=== PATIENT | female | born 1995 | race Caucasian/White ===

== ENCOUNTER 2017-03-08 15:43 | Emergency (ER) | payer SELFPAY, OTHER ==
[2017-03-08] MEDS: AZITHROMYCIN 250 MG TAB PO (17:30)
== END 2017-03-08 17:56 | disposition home or self-care (01) ==
LOC: M ED 15:43
DX: J40 Bronchitis, not specified as acute or chronic (principal); Z87.891 Personal history of nicotine dependence
CPT/HCPCS: 87880

== ENCOUNTER 2018-01-18 12:08 | Emergency (ER) | payer SELFPAY | END 2018-01-18 14:28 | disposition left against medical advice (07) | LOC: M ED 12:08 | DX: Z53.29 Procedure and treatment not carried out because of patient's decision for other reasons (principal) ==

== ENCOUNTER 2018-03-25 07:57 | Emergency (ER) | payer SELFPAY ==
[~2018-03-25] VITALS: Ht 157.5 cm; Wt 53.2 kg
[~2018-03-25 07:57] MED LIST: MOM30SS PO; MOTR200T44 PO; NEXP1IMP SC; PROAAER10 INH; TYLE167L PO; ZITHTAB PO
[2018-03-25] MEDS ORDERED: MAGICMW SSP (09:11)
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
[2018-03-25] MEDS ORDERED: ROBA500T PO (10:26)
[2018-03-25] MEDS ORDERED: NAPR-885 PO (10:26)
[2018-03-25] MEDS ORDERED: KETOROLAC 60 MG/2 ML VIAL (J1885) IM ONE (10:30)
[2018-03-25] MEDS ORDERED: CYCLOBENZAPRINE 10 MG TAB PO ONE (10:30)
[2018-03-25 11:06] VITALS: BP 107/69
== END 2018-03-25 11:07 | disposition home or self-care (01) ==
LOC: M ED 07:57
DX: M54.6 Pain in thoracic spine (principal); W18.40XA Slipping, tripping and stumbling without falling, unspecified, initial encounter; Y92.9 Unspecified place or not applicable; Y93.9 Activity, unspecified; Y99.9 Unspecified external cause status; J45.909 Unspecified asthma, uncomplicated; Z79.899 Other long term (current) drug therapy
CPT/HCPCS: 72040; 72072; 96372; 99283; J1885

== ENCOUNTER 2018-04-24 07:57 | Emergency (ER) | payer SELFPAY ==
[~2018-04-24] VITALS: Ht 157.5 cm; Wt 78.2 kg
[~2018-04-24 07:57] MED LIST changes: +MAGICMW SSP; +NAPR-885 PO; +ROBA500T PO
[2018-04-24 07:58] VITALS: BP 126/75
[2018-04-24] MEDS ORDERED: KETOROLAC 60 MG/2 ML VIAL (J1885) IM ONE (08:15)
--- NOTE | 2018-04-24 08:33 | REP ---
Right foot four views : There is no fracture or dislocation. Mineralization and joint spaces are normal. There are no calcifications or foreign bodies. Impression: Negative right foot . Electronically Signed by Clarke Alejo MD 04/24/2018 08:24 A
== END 2018-04-24 09:08 | disposition home or self-care (01) ==
LOC: M ED 07:57
DX: M79.671 Pain in right foot (principal); Z79.3 Long term (current) use of hormonal contraceptives
CPT/HCPCS: 73630; 96372; 99284; J1885

== ENCOUNTER 2018-07-04 23:23 | Emergency (ER) | payer OTHER, SELFPAY ==
[~2018-07-04] VITALS: Ht 157.5 cm; Wt 53.2 kg
[2018-07-05] MEDS ORDERED: METOCLOPRAMIDE INJ 10MG/2ML VIAL (J2765) IV ONE
[2018-07-05] MEDS ORDERED: KETOROLAC 30 MG/ML VIAL (J1885) IV ONE
[2018-07-05] MEDS ORDERED: diphenhydrAMINE INJ 50MG/ML VIAL (J1200) IV ONE
[2018-07-05] MEDS ORDERED: ACETAMINOPHEN 500 MG TAB PO ONE
[2018-07-05] MEDS ORDERED: CYCL5TAB PO (01:12)
[2018-07-05] MEDS ORDERED: CYCLOBENZAPRINE 5MG TABLET PO ONE (01:15)
[2018-07-05 01:24] VITALS: BP 110/64
== END 2018-07-05 01:49 | disposition home or self-care (01) ==
LOC: M ED 23:23
DX: G44.209 Tension-type headache, unspecified, not intractable (principal); S29.012A Strain of muscle and tendon of back wall of thorax, initial encounter; X58.XXXA Exposure to other specified factors, initial encounter; Y92.89 Other specified places as the place of occurrence of the external cause; Z79.3 Long term (current) use of hormonal contraceptives; Z87.891 Personal history of nicotine dependence
CPT/HCPCS: 84702; 96374; 96375; 99284; J1200; J1885; J2765

== ENCOUNTER 2018-09-26 21:25 | Emergency (ER) | payer OTHER, SELFPAY ==
[~2018-09-26] VITALS: Ht 157.5 cm; Wt 53.2 kg
[~2018-09-26 21:25] MED LIST changes: +CYCL5TAB PO
[2018-09-26] MEDS ORDERED: ADACEL/BOOSTRIX VACCINE (DIPHTH/PERTUSS/ACELL/TETANUS)0.5ML SYR (90715) IM ONE (22:45)
[2018-09-26] MEDS ORDERED: NORCO, ANEXSIA 5/325MG TABLET (HYDROcodone/ACETAMINOPHEN) PO ONE (22:45)
[2018-09-26] MEDS ORDERED: NORC1TAB7 PO (23:23)
[2018-09-26] MEDS ORDERED: IBUP-1022 PO (23:23)
[2018-09-26] MEDS ORDERED: KEFL500C17 PO (23:27)
[2018-09-26] MEDS ORDERED: NORCO 5/325MG TABLET (BULK FOR ED) PO ONE (23:30)
[2018-09-26 23:31] VITALS: BP 128/70
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
== END 2018-09-26 23:45 | disposition home or self-care (01) ==
LOC: M ED 21:25
DX: S92.424A Nondisplaced fracture of distal phalanx of right great toe, initial encounter for closed fracture (principal); W24.0XXA Contact with lifting devices, not elsewhere classified, initial encounter; Y92.9 Unspecified place or not applicable; Y93.9 Activity, unspecified; Y99.0 Civilian activity done for income or pay; J45.909 Unspecified asthma, uncomplicated; Z79.3 Long term (current) use of hormonal contraceptives

== ENCOUNTER 2018-12-21 15:00 | Emergency (ER) | payer OTHER, SELFPAY ==
[~2018-12-21] VITALS: Ht 157.5 cm; Wt 55.0 kg
[~2018-12-21 15:00] MED LIST changes: +IBUP-1022 PO; +KEFL500C17 PO; +NORC1TAB7 PO
[2018-12-21] MEDS ORDERED: ALBUTEROL SULFATE 2.5 MG/0.5 ML INH NEB SOLN INH ONE (17:15)
[2018-12-21 17:23] LABS: INFLUENZA A AMPLIFICATION NEGATIVE (NEGATIVE); INFLUENZA B AMPLIFICATION NEGATIVE (NEGATIVE)
--- NOTE | 2018-12-21 18:20 | REP ---
PA and lateral chest: Comparison is a rib series dated 12/24/2009. The lung paredes are clear. The cardiac size is normal. The toy, mediastinum, and skeletal structures are unremarkable. Impression: Negative PA and lateral chest. There is no interval change. Electronically Signed by Clarke Alejo MD 12/21/2018 06:11 P
[2018-12-21] MEDS ORDERED: AFRI0.058 (18:21)
[2018-12-21] MEDS ORDERED: VENTAER INH (18:21)
[2018-12-21] MEDS ORDERED: BENZ200C70 PO (18:21)
[2018-12-21] MEDS ORDERED: ZITHTAB PO (18:21)
[2018-12-21] MEDS ORDERED: FLON1SPR NARES (18:22)
[2018-12-21 18:26] VITALS: BP 119/74
== END 2018-12-21 18:32 | disposition home or self-care (01) ==
LOC: M ED 15:00
DX: J45.901 Unspecified asthma with (acute) exacerbation (principal); H65.01 Acute serous otitis media, right ear; R51 Headache

== ENCOUNTER 2019-01-28 09:58 | Emergency (ER) | payer OTHER ==
[~2019-01-28] VITALS: Ht 157.5 cm; Wt 51.8 kg
[~2019-01-28 09:58] MED LIST changes: +AFRI0.058; +BENZ200C70 PO; +FLON1SPR NARES; +VENTAER INH
[2019-01-28] MEDS ORDERED: KETOROLAC 30 MG/ML VIAL (J1885) IV ONE (11:00)
[2019-01-28] MEDS ORDERED: NS 1,000 ML IV ONE (11:00)
[2019-01-28] MEDS ORDERED: ONDANSETRON 4MG/2ML VIAL (J2405) IV ONE (11:00)
[2019-01-28 11:30] LABS: BASO % 0.5 % (0.0-1.0); EOS # 0.2 10^3/uL (0.0-0.5); EOS % 2.1 % (0.0-3.0); HEMATOCRIT 43.1 % (36.0-47.0); HEMOGLOBIN 13.7 g/dl (12.0-15.5); MEAN CORPUSCULAR HEMOGLOBIN 28.6 pg (27.0-33.0); MEAN CORPUSCULAR HGB CONC 31.8 g/dl (32.0-36.5); MONO # 0.5 10^3/uL (0.0-0.8); MONO % 6.3 % (0.0-5.0); NEUTROPHILS # 5.7 10^3/uL (1.5-8.5); NEUTROPHILS % 67.7 % (36.0-66.0); PLATELET COUNT, AUTOMATED 236 10^3/uL (150-450); RED BLOOD COUNT 4.79 10^6/uL (4.00-5.40); WHITE BLOOD COUNT 8.5 10^3/uL (4.0-10.0)
[2019-01-28 11:38] LABS: ALT/SGPT 15 U/L (12-78); BILIRUBIN,DIRECT < 0.1 MG/DL (0.0-0.2); BILIRUBIN,TOTAL 0.3 MG/DL (0.2-1.0); BLOOD UREA NITROGEN 8 MG/DL (7-18); CALCIUM LEVEL 9.2 MG/DL (8.5-10.1); CARBON DIOXIDE LEVEL 22 MEQ/L (21-32); CHLORIDE LEVEL 112 MEQ/L (98-107); CREATININE FOR GFR 0.92 MG/DL (0.55-1.30); GLOMERULAR FILTRATION RATE > 60.0 (>60); GLUCOSE, FASTING 105 MG/DL (70-100); POTASSIUM SERUM 3.8 MEQ/L (3.5-5.1); SODIUM LEVEL 140 MEQ/L (136-145); TOTAL PROTEIN 7.9 GM/DL (6.4-8.2)
--- NOTE | 2019-01-28 11:41 | REP ---
Urinary tract sonography: History: Right flank pain and dysuria. Comparison CT study December 21, 2006. Findings: Scanning at the level of the urinary bladder shows that it is empty at the time of scanning. Renal cortical echogenicity pattern in the right kidney appears slightly increased which may reflect obstructive uropathy or pyelonephritis. It is essentially isoechoic with hepatic parenchyma. There is mild right-sided hydronephrosis. Right hydroureter 15 mm in AP dimension is seen. No left-sided hydronephrosis is seen. Renal cortical echogenicity pattern is normal on the left. No masses seen on either side. No cyst is observed. Left renal dimensions are 11.1 x 4.7 x 5.3 cm. Right kidney measures 11.5 x 4.6 x 4.1 cm. Impression: Mild to moderate right-sided hydronephrosis and hydroureter. This is a new finding compared with the 2007 CT study. Mildly increased renal cortical echogenicity pattern right kidney. Electronically Signed by Gustabo Jacobo MD 01/28/2019 11:33 A
[2019-01-28] MEDS ORDERED: FLOM0.4C39 PO (13:40)
[2019-01-28] MEDS ORDERED: IBUP-1022 PO (13:40)
[2019-01-28] MEDS ORDERED: NORC1TAB7 PO (13:40)
[2019-01-28] MEDS ORDERED: ONDA4TAB6 PO (13:40)
[2019-01-28 14:01] VITALS: BP 133/83
--- NOTE | 2019-01-28 15:51 | REP ---
KUB: REASON: Right-sided abdominal pain with renal colic. FINDINGS: KUB shows the intestinal gas pattern to be nonspecific. The organ silhouettes insofar as delineated are unremarkable. There is no evidence of free intraperitoneal air. IMPRESSION: Nonspecific. There is a calcification in the right hemipelvis, which is not round but might represent a phlebolith. Certainly, a distal right ureteral calculus cannot be ruled out. Electronically Signed by Rm Martin DO 01/28/2019 04:08 P
== END 2019-01-28 14:04 | disposition home or self-care (01) ==
LOC: M ED 09:58
DX: N13.2 Hydronephrosis with renal and ureteral calculous obstruction (principal); J45.909 Unspecified asthma, uncomplicated; F17.210 Nicotine dependence, cigarettes, uncomplicated; Z79.3 Long term (current) use of hormonal contraceptives; Z79.51 Long term (current) use of inhaled steroids; Z79.899 Other long term (current) drug therapy
CPT/HCPCS: 74018; 76775; 80048; 80076; 81001; 85025; 87086; 96361; 96374; 96375; 99284; J1885; J2405

== ENCOUNTER 2019-01-31 06:50 | Emergency (ER) | payer OTHER ==
[~2019-01-31] VITALS: Ht 157.5 cm; Wt 53.3 kg
[~2019-01-31 06:50] MED LIST changes: +FLOM0.4C39 PO; +ONDA4TAB6 PO
[2019-01-31 07:41] LABS: BASO % 0.3 % (0.0-1.0); EOS # 0.1 10^3/uL (0.0-0.5); EOS % 1.1 % (0.0-3.0); HEMATOCRIT 39.3 % (36.0-47.0); HEMOGLOBIN 12.9 g/dl (12.0-15.5); LYMPH # 0.8 10^3/uL (1.5-5.0); LYMPH % 11.1 % (24.0-44.0); MEAN CORPUSCULAR HEMOGLOBIN 28.9 pg (27.0-33.0); MEAN CORPUSCULAR HGB CONC 32.8 g/dl (32.0-36.5); MEAN CORPUSCULAR VOLUME 88.1 fl (80.0-96.0); MONO # 0.6 10^3/uL (0.0-0.8); MONO % 8.2 % (0.0-5.0); NEUTROPHILS # 5.9 10^3/uL (1.5-8.5); NEUTROPHILS % 78.6 % (36.0-66.0); PLATELET COUNT, AUTOMATED 144 10^3/uL (150-450); RED BLOOD COUNT 4.46 10^6/uL (4.00-5.40); WHITE BLOOD COUNT 7.5 10^3/uL (4.0-10.0)
[2019-01-31] MEDS ORDERED: NS 1,000 ML IV ONE (07:45)
[2019-01-31] MEDS ORDERED: ONDANSETRON 4MG/2ML VIAL (J2405) IV ONE (07:45)
[2019-01-31 08:21] LABS: ALBUMIN 3.3 GM/DL (3.2-5.2); ALT/SGPT 13 U/L (12-78); BILIRUBIN,DIRECT < 0.1 MG/DL (0.0-0.2); BILIRUBIN,TOTAL 0.5 MG/DL (0.2-1.0); BLOOD UREA NITROGEN 13 MG/DL (7-18); CALCIUM LEVEL 8.9 MG/DL (8.5-10.1); CARBON DIOXIDE LEVEL 23 MEQ/L (21-32); CHLORIDE LEVEL 109 MEQ/L (98-107); GLUCOSE, FASTING 107 MG/DL (70-100); LIPASE 41 U/L (73-393); POTASSIUM SERUM 4.6 MEQ/L (3.5-5.1); SODIUM LEVEL 140 MEQ/L (136-145); TOTAL PROTEIN 6.9 GM/DL (6.4-8.2)
[2019-01-31] MEDS ORDERED: KETOROLAC 30 MG/ML VIAL (J1885) IV ONE (09:00)
--- NOTE | 2019-01-31 09:42 | REP ---
CT ABDOMEN AND PELVIS WITHOUT CONTRAST: CT abdomen and pelvis was performed without oral or IV contrast. Sagittal and coronal reconstruction images are performed. Visualized lung bases demonstrate no infiltrate. The liver, spleen, adrenals, and pancreas are grossly unremarkable. There is moderate right hydroureteronephrosis caused by a 5 mm calculus at the right ureterovesical junction. There are a couple of punctate calcifications in the right renal collecting system. There are two subcentimeter calculi in the left renal collecting system. There is no abdominal aortic aneurysm. There is no adenopathy. There is no free air. No gross bowel abnormality is seen. There is mild free fluid in the pelvis. IMPRESSION: 5 mm calculus at the right ureterovesical junction causing moderate right hydroureteronephrosis. Intrarenal calculi are also seen. Mild free fluid in the pelvis. Electronically Signed by Clarke Connell MD 01/31/2019 04:19 P
[2019-01-31] MEDS ORDERED: NORC1TAB7 PO (10:02)
[2019-01-31] MEDS ORDERED: KETO10TAB PO (10:02)
[2019-01-31 10:20] VITALS: BP 108/58
== END 2019-01-31 10:33 | disposition home or self-care (01) ==
LOC: M ED 06:50
DX: N13.2 Hydronephrosis with renal and ureteral calculous obstruction (principal); Z79.3 Long term (current) use of hormonal contraceptives; F17.210 Nicotine dependence, cigarettes, uncomplicated
CPT/HCPCS: 74176; 80048; 80076; 81001; 83690; 84702; 85025; 96361; 96374; 96375; 99284; J1885; J2405

== ENCOUNTER 2019-04-28 11:24 | Emergency (ER) | payer OTHER, SELFPAY ==
[~2019-04-28] VITALS: Ht 157.5 cm; Wt 52.4 kg
[~2019-04-28 11:24] MED LIST changes: +KETO10TAB PO
[2019-04-28] MEDS ORDERED: IBUP200T45 PO (11:31)
[2019-04-28 12:30] LABS: INFLUENZA A AMPLIFICATION NEGATIVE (NEGATIVE); INFLUENZA B AMPLIFICATION POSITIVE (NEGATIVE)
--- NOTE | 2019-04-28 12:31 | REP ---
Chest x-ray: Two views. History: fever and cough . Comparison study: December 21, 2018 . Findings: The lungs are well inflated and free of infiltrate. The pleural angles are sharp. The heart size is normal. Pulmonary vasculature is not increased. No significant bony abnormality is seen. Impression: Negative chest x-ray. Electronically Signed by Gustabo Jacobo MD 04/28/2019 12:23 P
[2019-04-28 13:08] LABS: BASO % 0.2 % (0.0-1.0); HEMATOCRIT 45.2 % (36.0-47.0); HEMOGLOBIN 15.3 g/dl (12.0-15.5); LYMPH % 19.8 % (24.0-44.0); MEAN CORPUSCULAR HEMOGLOBIN 28.7 pg (27.0-33.0); MEAN CORPUSCULAR HGB CONC 33.8 g/dl (32.0-36.5); MEAN CORPUSCULAR VOLUME 84.8 fl (80.0-96.0); MONO # 0.8 10^3/uL (0.0-0.8); MONO % 14.7 % (0.0-5.0); NEUTROPHILS # 3.4 10^3/uL (1.5-8.5); NEUTROPHILS % 65.1 % (36.0-66.0); PLATELET COUNT, AUTOMATED 162 10^3/uL (150-450); RED BLOOD COUNT 5.33 10^6/uL (4.00-5.40); WHITE BLOOD COUNT 5.2 10^3/uL (4.0-10.0)
[2019-04-28 13:33] LABS: BLOOD UREA NITROGEN 15 MG/DL (7-18); CALCIUM LEVEL 9.4 MG/DL (8.5-10.1); CARBON DIOXIDE LEVEL 25 MEQ/L (21-32); CHLORIDE LEVEL 99 MEQ/L (98-107); CREATININE FOR GFR 1.04 MG/DL (0.55-1.30); GLOMERULAR FILTRATION RATE > 60.0 (>60); GLUCOSE, FASTING 84 MG/DL (70-100); POTASSIUM SERUM 4.3 MEQ/L (3.5-5.1); SODIUM LEVEL 132 MEQ/L (136-145)
[2019-04-28 14:10] VITALS: BP 115/80
== END 2019-04-28 14:10 | disposition home or self-care (01) ==
LOC: M ED 11:24
DX: J10.1 Influenza due to other identified influenza virus with other respiratory manifestations (principal); E23.6 Other disorders of pituitary gland; Z87.891 Personal history of nicotine dependence

== ENCOUNTER 2019-05-01 12:46 | Emergency (ER) | payer OTHER, SELFPAY ==
[~2019-05-01] VITALS: Ht 157.5 cm; Wt 49.6 kg
[~2019-05-01 12:46] MED LIST changes: +IBUP200T45 PO
[2019-05-01 12:47] VITALS: BP 104/60
[2019-05-01] MEDS ORDERED: CHLO1.4S2 MT (13:18)
[2019-05-01] MEDS ORDERED: ACETAMINOPHEN 325 MG TAB PO ONE (14:00)
== END 2019-05-01 14:13 | disposition home or self-care (01) ==
LOC: M ED 12:46
DX: J10.1 Influenza due to other identified influenza virus with other respiratory manifestations (principal); Z79.3 Long term (current) use of hormonal contraceptives

== ENCOUNTER 2019-05-13 17:54 | Emergency (ER) | payer SELFPAY ==
[~2019-05-13] VITALS: Ht 157.5 cm; Wt 52.0 kg
[2019-05-13 17:54] VITALS: BP 134/76
[~2019-05-13 17:54] MED LIST changes: +CHLO1.4S2 MT
[2019-05-13] MEDS ORDERED: AUGM875T28 PO (18:19)
[2019-05-13] MEDS ORDERED: AUGMENTIN 875 MG TAB PO ONE (18:30)
== END 2019-05-13 18:25 | disposition home or self-care (01) ==
LOC: M ED 17:54
DX: K02.9 Dental caries, unspecified (principal); E23.7 Disorder of pituitary gland, unspecified; Z79.899 Other long term (current) drug therapy

== ENCOUNTER 2021-07-25 15:56 | Emergency (ER) | payer OTHER, SELFPAY ==
[~2021-07-25] VITALS: Ht 157.5 cm; Wt 56.0 kg
[~2021-07-25 15:56] MED LIST changes: -AFRI0.058; +AUGM875T28 PO; -CHLO1.4S2 MT; +CHLO1.4S7 MT; -IBUP200T45 PO; +IBUP200T46 PO; +OXYM15SP2
[2021-07-25] MEDS ORDERED: LIDOCAINE W/EPINEPHRINE 1% 20ML VIAL SC ONE (20:00)
[2021-07-25] MEDS ORDERED: CEPH500C PO (20:22)
[2021-07-25] MEDS ORDERED: CEPHALEXIN 500 MG CAP PO ONE (20:30)
[2021-07-25 20:37] VITALS: BP 110/65
== END 2021-07-25 20:38 | disposition home or self-care (01) ==
LOC: M ED 15:56
DX: L02.411 Cutaneous abscess of right axilla (principal); J45.909 Unspecified asthma, uncomplicated; Z79.899 Other long term (current) drug therapy

== ENCOUNTER 2021-09-07 00:12 | Emergency (ER) | payer OTHER ==
[~2021-09-07] VITALS: Ht 157.5 cm; Wt 51.8 kg
[~2021-09-07 00:12] MED LIST changes: +CEPH500C PO; +ETON68IM SC; -NEXP1IMP SC
[2021-09-07 00:13] VITALS: BP 132/72
== END 2021-09-07 04:45 | disposition left against medical advice (07) ==
LOC: M ED 00:12
DX: Z53.21 Procedure and treatment not carried out due to patient leaving prior to being seen by health care provider (principal)

== ENCOUNTER 2021-09-24 11:29 | Emergency (ER) | payer OTHER ==
[~2021-09-24] VITALS: Ht 157.5 cm; Wt 53.3 kg
[2021-09-24 11:30] VITALS: BP 119/69
== END 2021-09-24 14:30 | disposition left against medical advice (07) ==
LOC: M ED 11:29
DX: Z53.21 Procedure and treatment not carried out due to patient leaving prior to being seen by health care provider (principal)

== ENCOUNTER → 2022-04-29 | Outpatient (CLI) | payer OTHER ==
[2022-04-29 17:55] LABS: HEMATOCRIT 35.3 % (36.0-47.0); HEMOGLOBIN 11.9 g/dl (12.0-15.5); MEAN CORPUSCULAR HEMOGLOBIN 29.9 pg (27.0-33.0); MEAN CORPUSCULAR HGB CONC 33.7 g/dl (32.0-36.5); MEAN CORPUSCULAR VOLUME 88.7 fl (80.0-96.0); PLATELET COUNT, AUTOMATED 211 10^3/uL (150-450); RED BLOOD COUNT 3.98 10^6/uL (4.00-5.40); WHITE BLOOD COUNT 7.1 10^3/uL (4.0-10.0)
[2022-04-29 18:55] LABS: HIV 1&2 SCREEN CENTAUR NEGATIVE (NEGATIVE)
[2022-04-30 16:03] LABS: GC DNA AMPLIFICATION NEGATIVE (NEGATIVE)
== END ==
LOC: M PLALAB 14:42
PROVIDERS: ATTEND Advanced Practice Midwife
DX: Z34.82 Encounter for supervision of other normal pregnancy, second trimester (principal)

== ENCOUNTER → 2022-05-12 | Outpatient (CLI) | payer OTHER | LOC: M WHC 07:57 | PROVIDERS: ATTEND Advanced Practice Midwife | DX: Z34.82 Encounter for supervision of other normal pregnancy, second trimester (principal) ==

== ENCOUNTER → 2022-06-06 | Outpatient (CLI) | payer OTHER ==
[2022-06-06 15:43] LABS: HEMATOCRIT 30.9 % (36.0-47.0); HEMOGLOBIN 10.3 g/dl (12.0-15.5); MEAN CORPUSCULAR HEMOGLOBIN 28.8 pg (27.0-33.0); MEAN CORPUSCULAR HGB CONC 33.3 g/dl (32.0-36.5); MEAN CORPUSCULAR VOLUME 86.3 fl (80.0-96.0); PLATELET COUNT, AUTOMATED 185 10^3/uL (150-450); RED BLOOD COUNT 3.58 10^6/uL (4.00-5.40); WHITE BLOOD COUNT 6.7 10^3/uL (4.0-10.0)
[2022-06-06 17:13] LABS: GC DNA AMPLIFICATION NEGATIVE (NEGATIVE)
== END ==
LOC: M PLALAB 11:48
PROVIDERS: ATTEND Obstetrics & Gynecology
DX: Z34.82 Encounter for supervision of other normal pregnancy, second trimester (principal); Z3A.00 Weeks of gestation of pregnancy not specified
CPT/HCPCS: 36415; 82950; 85027; 86850; 86900; 86901; 87810; 87850; J2790

== ENCOUNTER → 2022-06-16 | Outpatient (CLI) | payer OTHER | LOC: M LAB 08:10 | PROVIDERS: ATTEND Obstetrics & Gynecology | DX: Z34.82 Encounter for supervision of other normal pregnancy, second trimester (principal) ==

== ENCOUNTER 2022-07-20 22:32 | Emergency (ER) | payer OTHER ==
[~2022-07-20] VITALS: Ht 157.5 cm; Wt 67.7 kg
[~2022-07-20 22:32] MED LIST changes: +ACET325C5 PO; +PRENTAB9 PO
[2022-07-20 22:34] VITALS: BP 126/59
[2022-07-21] MEDS ORDERED: CEPH500C PO (06:24)
== END 2022-07-21 02:11 | disposition admitted as inpatient to this hospital (09) ==
LOC: M ED 22:32
DX: O26.893 Other specified pregnancy related conditions, third trimester (principal); M54.50 Low back pain, unspecified; Z3A.35 35 weeks gestation of pregnancy; Z79.810 Long term (current) use of selective estrogen receptor modulators (SERMs); Z79.1 Long term (current) use of non-steroidal anti-inflammatories (NSAID)

== ENCOUNTER → 2022-07-29 | Outpatient (REF) | payer OTHER | LOC: M PLALAB 11:02 | PROVIDERS: ATTEND Obstetrics & Gynecology | DX: Z36.85 Encounter for antenatal screening for Streptococcus B (principal) ==

== ENCOUNTER 2022-08-03 15:02 | Emergency (ER) | payer OTHER ==
[~2022-08-03] VITALS: Ht 157.5 cm; Wt 67.5 kg
[2022-08-03 15:08] VITALS: BP 114/82; TEMP 97.8; O2SAT 99
[2022-08-03] MEDS ORDERED: TUMS500C PO (15:32)
[2022-08-03] MEDS ORDERED: ACET-897 PO (15:32)
[2022-08-03] MEDS ORDERED: CYCL10TA20 PO (18:48)
== END 2022-08-03 15:08 | disposition admitted as inpatient to this hospital (09) ==
LOC: M ED 15:02
DX: M54.50 Low back pain, unspecified (principal); Z91.030 Bee allergy status; Z79.810 Long term (current) use of selective estrogen receptor modulators (SERMs); Z79.899 Other long term (current) drug therapy; Z53.9 Procedure and treatment not carried out, unspecified reason

== ENCOUNTER 2022-08-03 15:10 | Outpatient (CLI) | payer OTHER ==
[~2022-08-03] VITALS: Ht 157.5 cm; Wt 67.6 kg
[2022-08-03] MEDS ORDERED: TUMS500C PO (15:32)
[2022-08-03] MEDS ORDERED: ACET-897 PO (15:32)
[2022-08-03] MEDS ORDERED: HOME MED LIST COMPLETE! XX SCH (15:35)
[2022-08-03 15:39] VITALS: BP 120/71; O2SAT 98
[2022-08-03 17:26] VITALS: BP 122/72
[2022-08-03] MEDS ORDERED: CYCL10TA20 PO (18:48)
[2022-08-03] MEDS ORDERED: CYCLOBENZAPRINE 10MG TABLET PO ONE (19:00)
[2022-08-03 19:11] VITALS: BP 137/76
[2022-08-03 19:12] VITALS: O2SAT 100
[2022-08-03 19:13] VITALS: BP 127/74
== END 2022-08-03 19:28 | disposition home or self-care (01) ==
LOC: M LDO 15:10
PROVIDERS: ATTEND Obstetrics & Gynecology
DX: O26.893 Other specified pregnancy related conditions, third trimester (principal); M54.50 Low back pain, unspecified; Z3A.36 36 weeks gestation of pregnancy

== ENCOUNTER 2022-08-12 21:26 | Inpatient (IN) | payer OTHER ==
[~2022-08-12] VITALS: Ht 157.5 cm; Wt 71.0 kg
[~2022-08-12 21:26] MED LIST changes: +ACET-897 PO; +CYCL10TA20 PO; +TUMS500C PO
[2022-08-12 21:46] VITALS: BP 139/79
[2022-08-12 22:35] LABS: BASO % 0.2 % (0.0-1.0); EOS # 0.1 10^3/uL (0.0-0.5); EOS % 1.3 % (0.0-3.0); HEMATOCRIT 28.9 % (36.0-47.0); HEMOGLOBIN 9.5 g/dl (12.0-15.5); LYMPH # 1.3 10^3/uL (1.5-5.0); MEAN CORPUSCULAR HEMOGLOBIN 25.2 pg (27.0-33.0); MEAN CORPUSCULAR HGB CONC 32.9 g/dl (32.0-36.5); MEAN CORPUSCULAR VOLUME 76.7 fl (80.0-96.0); MONO # 0.6 10^3/uL (0.0-0.8); MONO % 6.7 % (2.0-8.0); NEUTROPHILS # 7.1 10^3/uL (1.5-8.5); NEUTROPHILS % 77.3 % (36.0-66.0); PLATELET COUNT, AUTOMATED 191 10^3/uL (150-450); RED BLOOD COUNT 3.77 10^6/uL (4.00-5.40); WHITE BLOOD COUNT 9.2 10^3/uL (4.0-10.0)
[2022-08-12 22:36] VITALS: BP 138/82
[2022-08-12] MEDS ORDERED: OXYTOCIN DRIP 30 UNITS in IV 1 EA IV SCH (23:30)
[2022-08-12] MEDS ORDERED: MORPHINE 4 MG/ML 1ML VIAL As Ordered ONE (23:52)
[2022-08-12] MEDS ORDERED: LIDOCAINE 1% MDV 20ML VIAL SC ONE (23:55)
[2022-08-12] MEDS ORDERED: MORPHINE 4 MG/ML 1ML VIAL IV ONE (23:55)
[2022-08-12] MEDS ORDERED: LIDOCAINE 1% MDV 20ML VIAL As Ordered ONE (23:55)
[2022-08-12 23:59] VITALS: BP 148/86
[2022-08-13] VITALS (11 sets, daily range): BP systolic 117–152; BP diastolic 62–94; O2SAT 97–98
[2022-08-13] MEDS ORDERED: OXYTOCIN DRIP 30 UNITS in IV 1 EA IV SCH ×4 (00:35→00:45)
[2022-08-13] MEDS ORDERED: ceFAZolin SOD 2 GM in IV 1 EA IV STA (00:44)
[2022-08-13] MEDS ORDERED: ANUSOL HC CREAM 30GM TOP PRN (00:45)
[2022-08-13] MEDS ORDERED: ONDANSETRON 4MG 2ML VIAL IV PRN (00:45)
[2022-08-13] MEDS ORDERED: LR 1,000 ML IV SCH (00:45)
[2022-08-13] MEDS ORDERED: CARBOPROST TROMETHAMINE 250 MCG/ML AMP IM PRN (00:45)
[2022-08-13] MEDS ORDERED: TRANEXAMIC ACID INJection 1,000 MG in NS 100 ML IV PRN (00:45)
[2022-08-13] MEDS ORDERED: DIBUCAINE 1% OINTMENT 30GM TOP PRN (00:45)
[2022-08-13] MEDS ORDERED: DOCUSATE SODIUM 100MG CAPSULE PO PRN (00:45)
[2022-08-13] MEDS ORDERED: METHYLERGONOVINE MALEATE 0.2MG/ML 1ML VIAL IM PRN (00:45)
[2022-08-13] MEDS ORDERED: ACETAMINOPHEN 500 MG TAB PO PRN (00:45)
[2022-08-13] MEDS ORDERED: ACETAMINOPHEN TAB 650MG DOSE (2X325MG) PO PRN (00:45)
[2022-08-13] MEDS ORDERED: IBUPROFEN 600MG TAB PO PRN (00:45)
[2022-08-13] MEDS ORDERED: IBUPROFEN 800 MG TAB PO PRN (00:45)
[2022-08-13] MEDS ORDERED: MORPHINE 10 MG/ML 1ML VIAL IV ONE (01:00)
[2022-08-13 06:53] LABS: HEMOGLOBIN 8.1 g/dl (12.0-15.5); MEAN CORPUSCULAR HEMOGLOBIN 25.2 pg (27.0-33.0); MEAN CORPUSCULAR HGB CONC 32.4 g/dl (32.0-36.5); MEAN CORPUSCULAR VOLUME 77.9 fl (80.0-96.0); PLATELET COUNT, AUTOMATED 176 10^3/uL (150-450); RED BLOOD COUNT 3.21 10^6/uL (4.00-5.40); WHITE BLOOD COUNT 11.9 10^3/uL (4.0-10.0)
[2022-08-14 06:00] VITALS: BP 121/67; O2SAT 99
[2022-08-14] MEDS ORDERED: RHOGAM 300MCG (1500IU) INJ IM SCH (08:30)
[2022-08-14] MEDS ORDERED: ACET-683 PO (09:31)
[2022-08-14] MEDS ORDERED: COLA100C5 PO (09:31)
[2022-08-14] MEDS ORDERED: IBUP-1022 PO (09:31)
[2022-08-15] MEDS ORDERED: MEASLES,MUMPS,RUBELLA VACCINE INJ (MMR-II) SC.IMMUN ONE (09:00)
[2022-08-15] MEDS ORDERED: BOOSTRIX VACCINE (TETANUS/DIPHTH/ACEL. PERTUSSIS) 0.5ML SYR IM.IMMUN ONE (09:00)
== END 2022-08-14 13:00 | disposition home or self-care (01) | DRG 541 ==
LOC: M LDO 21:26 → M LDI 21:55 → M OBS 08-13 03:09
PROVIDERS: ADMIT Obstetrics & Gynecology; ATTEND Obstetrics & Gynecology
PROC: 10E0XZZ Delivery of Products of Conception, External Approach (ICD-10-PCS; principal; 2022-08-12)
PROC: 10D17Z9 Manual Extraction of Products of Conception, Retained, Via Natural or Artificial Opening (ICD-10-PCS; 2022-08-12)
PROC: 0HQ9XZZ Repair Perineum Skin, External Approach (ICD-10-PCS; 2022-08-12)
DX: O70.0 First degree perineal laceration during delivery (principal); O73.1 Retained portions of placenta and membranes, without hemorrhage; Z3A.39 39 weeks gestation of pregnancy; Z37.0 Single live birth

== ENCOUNTER 2023-04-05 06:04 | Emergency (ER) | payer OTHER ==
[~2023-04-05] VITALS: Ht 157.5 cm; Wt 69.2 kg
[~2023-04-05 06:04] MED LIST changes: +ACET-683 PO; +COLA100C5 PO; +FERR325T3 PO; +LEVO1TAB40 PO; +OXYC1TAB23 PO; +PERI12LIQ SSP
[2023-04-05] MEDS: ACETAMINOPHEN 500 MG TAB PO ONE (08:48)
[2023-04-05] MEDS: METOCLOPRAMIDE INJ 10MG/2ML VIAL IV ONE (08:50)
[2023-04-05] MEDS: NS 1,000 ML IV ONE (08:50)
[2023-04-05] MEDS: diphenhydrAMINE 50MG/ML VIAL IV ONE (08:54)
[2023-04-05 09:19] LABS: HEMOGLOBIN 12.3 g/dl (12.0-15.5); MEAN CORPUSCULAR HEMOGLOBIN 25.4 pg (27.0-33.0); MEAN CORPUSCULAR HGB CONC 32.4 g/dl (32.0-36.5); MEAN CORPUSCULAR VOLUME 78.4 fl (80.0-96.0); PLATELET COUNT, AUTOMATED 249 10^3/uL (150-450); RED BLOOD COUNT 4.85 10^6/uL (4.00-5.40); WHITE BLOOD COUNT 7.3 10^3/uL (4.0-10.0)
[2023-04-05 09:36] VITALS: BP 121/70; TEMP 97.9; O2SAT 98
[2023-04-05 09:45] LABS: BLOOD UREA NITROGEN 14 MG/DL (9-23); CALCIUM LEVEL 8.9 MG/DL (8.5-10.1); CARBON DIOXIDE LEVEL 22 MMOL/L (20-31); CHLORIDE LEVEL 105 MMOL/L (98-107); CREATININE FOR GFR 0.78 MG/DL (0.55-1.30); GLOMERULAR FILTRATION RATE > 60.0 (>60); GLUCOSE, FASTING 95 MG/DL (60-100); POTASSIUM SERUM 3.9 MMOL/L (3.5-5.1); SODIUM LEVEL 135 MMOL/L (136-145)
[2023-04-05 09:49] LABS: HCG, SERUM QUALITATIVE NEGATIVE (NEGATIVE)
[2023-04-05] MEDS: KETOROLAC 30 MG/ML 1ML VIAL IV ONE (10:15)
== END 2023-04-05 11:45 | disposition home or self-care (01) ==
LOC: M ED 06:04
DX: G43.909 Migraine, unspecified, not intractable, without status migrainosus (principal); Z79.83 Long term (current) use of bisphosphonates; Z79.52 Long term (current) use of systemic steroids; Z79.899 Other long term (current) drug therapy; Z91.030 Bee allergy status
CPT/HCPCS: 80048; 84703; 85027; 96361; 96374; 96375; 99284; J1200; J1885; J2765

== ENCOUNTER 2023-05-16 11:00 | Observation (INO) | payer OTHER ==
[~2023-05-16] VITALS: Ht 157.5 cm; Wt 67.0 kg
[2023-05-16] MEDS: ONDANSETRON 4MG 2ML VIAL IV ONE (11:49)
[2023-05-16] MEDS: NS 1,000 ML IV ONE (11:49)
[2023-05-16 12:06] LABS: HEMATOCRIT 43.3 % (36.0-47.0); HEMOGLOBIN 13.9 g/dl (12.0-15.5); MEAN CORPUSCULAR HEMOGLOBIN 26.1 pg (27.0-33.0); MEAN CORPUSCULAR HGB CONC 32.1 g/dl (32.0-36.5); MEAN CORPUSCULAR VOLUME 81.2 fl (80.0-96.0); NEUTROPHILS % 78.6 % (36.0-66.0); PLATELET COUNT, AUTOMATED 297 10^3/uL (150-450); RED BLOOD COUNT 5.33 10^6/uL (4.00-5.40); WHITE BLOOD COUNT 9.3 10^3/uL (4.0-10.0)
[2023-05-16 12:07] LABS: BASO # 0.1 10^3/uL (0.0-0.2); BASO % 0.5 % (0.0-1.0); EOS # 0.1 10^3/uL (0.0-0.5); EOS % 1.4 % (0.0-3.0); LYMPH # 1.3 10^3/uL (1.5-5.0); MONO # 0.5 10^3/uL (0.0-0.8); MONO % 5.2 % (2.0-8.0); NEUTROPHILS # 7.3 10^3/uL (1.5-8.5)
[2023-05-16] MEDS: KETOROLAC 30 MG/ML 1ML VIAL IV ONE (12:32)
[2023-05-16 12:36] LABS: ALBUMIN 4.3 G/DL (3.2-5.2); BILIRUBIN,DIRECT 0.1 MG/DL (<0.4); BILIRUBIN,TOTAL 0.4 MG/DL (0.3-1.2); TOTAL PROTEIN 7.8 G/DL (5.7-8.2)
[2023-05-16] MEDS: MORPHINE 4 MG/ML 1ML VIAL IV ONE (14:35)
[2023-05-16] MEDS: cefTRIAXone SOD 1 GM in D5W MINI-BAG PLUS 50 ML IV ONE (14:36)
[2023-05-16] MEDS ORDERED: HOME MED LIST COMPLETE! XX SCH (14:40)
[2023-05-16] MEDS ORDERED: MIDAZOLAM INJ 2MG/2ML VIAL As Ordered ONE (16:14)
[2023-05-16] MEDS ORDERED: LIDOCAINE 2% 100MG/5ML SDV (FOR ANES.) As Ordered ONE (16:14)
[2023-05-16] MEDS ORDERED: fentaNYL 100 MCG/2 ML INJECTION As Ordered ONE (16:14)
[2023-05-16] MEDS ORDERED: propofoL 200 MG/20 ML VIAL As Ordered ONE (16:14)
[2023-05-16] MEDS: ISOVUE-300 61% 100ML VIAL As Ordered ONE (16:42)
[2023-05-16] MEDS ORDERED: ONDANSETRON 4MG 2ML VIAL As Ordered ONE (16:52)
[2023-05-16] MEDS ORDERED: KETOROLAC 60MG 2ML VIAL As Ordered ONE (16:52)
[2023-05-16] MEDS ORDERED: GLYCOPYRROLATE INJ 0.2 MG/ML 2 ML VIAL As Ordered ONE (16:57)
[2023-05-16] MEDS ORDERED: ONDANSETRON 4MG 2ML VIAL IV PRN (17:15)
[2023-05-16] MEDS ORDERED: oxyCODONE 5MG TAB PO PRN (17:15)
[2023-05-16] MEDS: LR 1,000 ML IV SCH ×2 (17:15→18:04)
[2023-05-16] MEDS ORDERED: HYDROMORPHONE HCL 0.5 MG/ 0.5 ML SYRINGE IV PRN (17:15)
[2023-05-16] MEDS ORDERED: fentaNYL 100 MCG/2 ML INJECTION IV PRN (17:15)
[2023-05-16 17:43] VITALS: BP 134/91; TEMP 98.1; O2SAT 98
[2023-05-16 18:13] VITALS: BP 144/89; TEMP 97.5; O2SAT 98
[2023-05-16 18:21] LABS: APPEARANCE, URINE HAZY (CLEAR); BACTERIA, URINE AUTO NEGATIVE (NEGATIVE); BILIRUBIN, URINE AUTO NEGATIVE (NEGATIVE); BLOOD, URINE BLOOD 1+ (NEGATIVE); COLOR, URINE YELLOW (YELLOW); GLUCOSE, URINE (UA) AUTO NEGATIVE (NEGATIVE); KETONE, URINE AUTO TRACE mg/dL (NEGATIVE); LEUKOCYTE ESTERASE, URINE AUTO NEGATIVE (NEGATIVE); MUCUS, URINE SMALL (NEGATIVE); NITRITE, URINE AUTO NEGATIVE (NEGATIVE); PROTEIN, URINE AUTO 1+ mg/dL (NEGATIVE); RBC, URINE AUTO 17 /HPF (0-3); SPECIFIC GRAVITY URINE AUTO 1.024 (1.002-1.035); SQUAMOUS EPITHELIAL CELL UR AU 2 /HPF (0-6); UROBILINOGEN, URINE AUTO 0.2 mg/dL (0.0-2.0); WBC, URINE AUTO 1 /HPF (0-3)
[2023-05-16 18:43] VITALS: BP 138/86; TEMP 97.7; O2SAT 98
== END 2023-05-16 19:50 | disposition home or self-care (01) ==
LOC: M ED 11:00 → M ED INP 11:01 → M MSPAV 17:44
PROVIDERS: ADMIT Student in an Organized Health Care Education/Training Program; ATTEND Student in an Organized Health Care Education/Training Program
DX: N13.2 Hydronephrosis with renal and ureteral calculous obstruction (principal); J45.909 Unspecified asthma, uncomplicated; F17.200 Nicotine dependence, unspecified, uncomplicated; F12.10 Cannabis abuse, uncomplicated; Z91.030 Bee allergy status; E23.6 Other disorders of pituitary gland
CPT/HCPCS: 52332; 74176; 74420; 80047; 80076; 81001; 84702; 85025; 87086; 96365; 96375; 99284; C1769; C2617; J0696; J1885; J2250; J2405; Q9967

== ENCOUNTER 2023-05-21 10:41 | Emergency (ER) | payer OTHER, SELFPAY ==
[~2023-05-21] VITALS: Ht 157.5 cm; Wt 66.0 kg
[2023-05-21 12:36] LABS: BASO % 0.5 % (0.0-1.0); EOS # 0.2 10^3/uL (0.0-0.5); HEMATOCRIT 42.8 % (36.0-47.0); LYMPH # 1.5 10^3/uL (1.5-5.0); LYMPH % 23.2 % (24.0-44.0); MEAN CORPUSCULAR HEMOGLOBIN 26.3 pg (27.0-33.0); MEAN CORPUSCULAR HGB CONC 32.7 g/dl (32.0-36.5); MEAN CORPUSCULAR VOLUME 80.5 fl (80.0-96.0); MONO # 0.4 10^3/uL (0.0-0.8); MONO % 6.2 % (2.0-8.0); NEUTROPHILS # 4.2 10^3/uL (1.5-8.5); NEUTROPHILS % 66.8 % (36.0-66.0); PLATELET COUNT, AUTOMATED 343 10^3/uL (150-450); RED BLOOD COUNT 5.32 10^6/uL (4.00-5.40); WHITE BLOOD COUNT 6.3 10^3/uL (4.0-10.0)
[2023-05-21] MEDS ORDERED: ISOVUE-370 76% 100ML VIAL As Ordered ONE (12:44)
[2023-05-21] MEDS: NS 1,000 ML IV ONE (13:52)
[2023-05-21] MEDS: KETOROLAC 30 MG/ML 1ML VIAL IV ONE (13:52)
[2023-05-21] MEDS: cefTRIAXone SOD 1 GM in D5W MINI-BAG PLUS 50 ML IV ONE (15:10)
[2023-05-21] MEDS ORDERED: CEPH500C PO (16:38)
[2023-05-21] MEDS ORDERED: KETO10TAB PO (16:38)
[2023-05-21 17:01] VITALS: BP 152/91; TEMP 97.4; O2SAT 98
== END 2023-05-21 17:16 | disposition home or self-care (01) ==
LOC: M ED 10:41
DX: T83.84XA Pain due to genitourinary prosthetic devices, implants and grafts, initial encounter (principal); N39.0 Urinary tract infection, site not specified; J45.909 Unspecified asthma, uncomplicated; F17.200 Nicotine dependence, unspecified, uncomplicated; F12.10 Cannabis abuse, uncomplicated; Z87.442 Personal history of urinary calculi; Z91.030 Bee allergy status; Z79.2 Long term (current) use of antibiotics; Z79.1 Long term (current) use of non-steroidal anti-inflammatories (NSAID)
CPT/HCPCS: 74177; 80047; 81001; 84702; 85025; 87086; 96361; 96365; 96366; 96375; 99284; J0696; J1885; Q9967

== ENCOUNTER → 2023-05-22 | Outpatient (REF) | payer SELFPAY, OTHER ==
[2023-05-22 18:27] LABS: CHOLESTEROL RISK RATIO 2.98 (<5); LDL CHOLESTEROL 96.8 MG/DL (<100)
[2023-05-22 18:28] LABS: THYROID STIMULATING HORMONE 0.641 uIU/ML (0.55-4.78); TOTAL 25(OH) VITAMIN D 6.6 NG/ML (20.0-100.0)
[2023-05-22 20:19] LABS: HEMOGLOBIN A1c 5.1 % (4.0-6.0)
== END ==
LOC: M LAB REF 17:14
PROVIDERS: ATTEND Nurse Practitioner Family
DX: E66.3 Overweight (principal); E55.9 Vitamin D deficiency, unspecified

== ENCOUNTER → 2023-06-06 | Outpatient (CLI) | payer OTHER ==
[~2023-06-06] MED LIST changes: +D3 S1CAP3 PO; +OXYB5TAB14 PO
[2023-06-06 11:52] LABS: APPEARANCE, URINE HAZY (CLEAR); BACTERIA, URINE AUTO NEGATIVE (NEGATIVE); BILIRUBIN, URINE AUTO NEGATIVE (NEGATIVE); BLOOD, URINE BLOOD 2+ (NEGATIVE); COLOR, URINE YELLOW (YELLOW); GLUCOSE, URINE (UA) AUTO NEGATIVE (NEGATIVE); KETONE, URINE AUTO NEGATIVE (NEGATIVE); LEUKOCYTE ESTERASE, URINE AUTO TRACE (NEGATIVE); MUCUS, URINE SMALL (NEGATIVE); NITRITE, URINE AUTO NEGATIVE (NEGATIVE); PROTEIN, URINE AUTO 1+ mg/dL (NEGATIVE); RBC, URINE AUTO 23 /HPF (0-3); SPECIFIC GRAVITY URINE AUTO 1.018 (1.002-1.035); SQUAMOUS EPITHELIAL CELL UR AU 4 /HPF (0-6); UROBILINOGEN, URINE AUTO 0.2 mg/dL (0.0-2.0); WBC, URINE AUTO 3 /HPF (0-3)
[2023-06-06 12:22] LABS: BLOOD UREA NITROGEN 17 MG/DL (9-23); CALCIUM LEVEL 10.2 MG/DL (8.5-10.1); CARBON DIOXIDE LEVEL 23 MMOL/L (20-31); CHLORIDE LEVEL 104 MMOL/L (98-107); CREATININE FOR GFR 0.87 MG/DL (0.55-1.30); GLOMERULAR FILTRATION RATE > 60.0 (>60); GLUCOSE, FASTING 84 MG/DL (60-100); POTASSIUM SERUM 4.3 MMOL/L (3.5-5.1); SODIUM LEVEL 137 MMOL/L (136-145)
== END ==
LOC: M RAD 10:53
PROVIDERS: ATTEND Physician Assistant
DX: Z01.818 Encounter for other preprocedural examination (principal)

== ENCOUNTER 2023-06-16 07:25 | Day surgery (SDC) | payer OTHER ==
[~2023-06-16] VITALS: Ht 157.5 cm; Wt 65.1 kg
[2023-06-16] MEDS ORDERED: LIDOCAINE 2% 100MG/5ML SDV (FOR ANES.) As Ordered ONE (07:47)
[2023-06-16] MEDS ORDERED: propofoL 200 MG/20 ML VIAL As Ordered ONE (07:47)
[2023-06-16] MEDS ORDERED: ONDANSETRON 4MG 2ML VIAL As Ordered ONE (07:47)
[2023-06-16] MEDS ORDERED: GLYCOPYRROLATE INJ 0.2 MG/ML 2 ML VIAL As Ordered ONE (07:49)
[2023-06-16] MEDS ORDERED: fentaNYL 100 MCG/2 ML INJECTION As Ordered ONE (07:50)
[2023-06-16] MEDS ORDERED: MIDAZOLAM INJ 2MG/2ML VIAL As Ordered ONE (07:50)
[2023-06-16] MEDS: LR 1,000 ML IV SCH (08:17)
[2023-06-16] MEDS: ceFAZolin SOD 2 GM in IV 1 EA IV ONE (09:14)
[2023-06-16] MEDS: ISOVUE-300 61% 100ML VIAL As Ordered ONE (09:34)
[2023-06-16] MEDS ORDERED: ACETAMINOPHEN 1000MG 100ML IV BAG As Ordered ONE (09:39)
[2023-06-16] MEDS ORDERED: fentaNYL 100 MCG/2 ML INJECTION IV PRN (09:50)
[2023-06-16] MEDS ORDERED: ONDANSETRON 4MG 2ML VIAL IV PRN (09:50)
[2023-06-16] MEDS ORDERED: LR 1,000 ML IV SCH (09:50)
[2023-06-16] MEDS: oxyCODONE 5MG TAB PO PRN (10:19)
[2023-06-16 10:58] VITALS: BP 119/68; TEMP 98; O2SAT 100
== END 2023-06-16 11:08 | disposition home or self-care (01) ==
LOC: M SDC 07:25
PROVIDERS: ATTEND Specialist
DX: N20.1 Calculus of ureter (principal); J45.909 Unspecified asthma, uncomplicated; Z79.899 Other long term (current) drug therapy; F17.290 Nicotine dependence, other tobacco product, uncomplicated; Z91.030 Bee allergy status
CPT/HCPCS: 52356; 76000; 81025; 82365; J0131; J0690; J1100; J2250; J2405; J3010; Q9967

== ENCOUNTER → 2023-07-21 | Outpatient (REF) | payer OTHER ==
[~2023-07-21] MED LIST changes: +ONDA-282 PO; -ONDA4TAB6 PO
[2023-07-21 13:53] LABS: HCG, SERUM QUALITATIVE NEGATIVE (NEGATIVE)
== END ==
LOC: M LAB REF 12:54
PROVIDERS: ATTEND Nurse Practitioner Family
DX: N92.5 Other specified irregular menstruation (principal)

== ENCOUNTER → 2023-07-31 | Outpatient (REF) | payer OTHER ==
[2023-07-31 14:23] LABS: HEMOGLOBIN A1c 5.5 % (4.0-6.0)
[2023-07-31 14:46] LABS: CHOLESTEROL RISK RATIO 3.67 (<5); HDL CHOLESTEROL 41.6 MG/DL (>40); LDL CHOLESTEROL 98.8 MG/DL (<100); NON-HDL-C 111.4 MG/DL
[2023-07-31 14:48] LABS: THYROID STIMULATING HORMONE 1.796 uIU/ML (0.55-4.78); TOTAL 25(OH) VITAMIN D 23.8 NG/ML (20.0-100.0)
== END ==
LOC: M LAB REF 12:47
PROVIDERS: ATTEND Physician Assistant
DX: E66.3 Overweight (principal); E55.9 Vitamin D deficiency, unspecified

== ENCOUNTER → 2023-10-31 | Outpatient (CLI) | payer OTHER | LOC: M RAD 12:16 | PROVIDERS: ATTEND Physician Assistant | DX: G43.909 Migraine, unspecified, not intractable, without status migrainosus (principal) ==

== ENCOUNTER → 2025-02-06 | Outpatient (CLI) | payer OTHER ==
[~2025-02-06] MED LIST changes: -CYCL5TAB PO; +CYCL5TAB4 PO; -FLOM0.4C39 PO; -IBUP-1022 PO; +IBUP600T42 PO; +TAMS-18 PO
== END ==
LOC: M WHC 08:03
PROVIDERS: ATTEND Physician Assistant
DX: N92.6 Irregular menstruation, unspecified (principal)